=== PATIENT | female | born 1975 | race African-American/Black ===

== ENCOUNTER 2018-05-12 14:01 | Emergency (ER) | payer BC, OTHER ==
[~2018-05-12] VITALS: Ht 154.9 cm; Wt 89.8 kg
[~2018-05-12 14:01] MED LIST: ACETAMINOPHEN-1 EAC1; AZITHROMYCIN 2250 MG PO; HYDROCODONE-AP1 EAC6; IBUPROFEN 800800 M1; NORVASC 5 MG TAB5 MG PO; PRINIVIL5 MG
[2018-05-12] MEDS ORDERED: HYDROCHLOROTH12.5 M1 PO (14:06)
[2018-05-12 15:28] VITALS: BP 166/98
== END 2018-05-12 15:29 | disposition home or self-care (01) ==
LOC: ER 14:01
DX: K08.89 Other specified disorders of teeth and supporting structures (principal); I10 Essential (primary) hypertension; J45.909 Unspecified asthma, uncomplicated; Z88.0 Allergy status to penicillin

== ENCOUNTER 2020-03-13 14:14 | Emergency (ER) | payer BC, OTHER ==
[~2020-03-13] VITALS: Ht 157.5 cm; Wt 88.5 kg
[~2020-03-13 14:14] MED LIST changes: +HYDROCHLOROTH12.5 M1 PO
[2020-03-13] MEDS ORDERED: DOXYCYCLINE 10100 M2 PO (14:29)
[2020-03-13] MEDS ORDERED: CLEOCIN HCL150 MG PO (15:29)
== END 2020-03-13 16:45 | disposition home or self-care (01) ==
LOC: ER 14:14
DX: K04.7 Periapical abscess without sinus (principal); I10 Essential (primary) hypertension; J45.909 Unspecified asthma, uncomplicated; F17.210 Nicotine dependence, cigarettes, uncomplicated; Z88.0 Allergy status to penicillin; Z79.899 Other long term (current) drug therapy